=== PATIENT | male | born 1980 | race Caucasian/White ===

== ENCOUNTER 2022-03-17 09:34 | Emergency (ER) | payer MEDICAID ==
[~2022-03-17] VITALS: Ht 170.2 cm; Wt 109.1 kg
[2022-03-17] MEDS ORDERED: TETanus/Pertussis (Acell)/Diphther VAC/PF (Tdap-Adult) 0.5ml syringe IMVAC ONE (10:25)
[2022-03-17] MEDS ORDERED: LIDOcaine 1% w/EPI 1:100,000 30ml vial (MDV) IJ ONE (10:32)
[2022-03-17] MEDS ORDERED: LIDOCAINE 1%/EPI 1:100,000 inj. 10 ML multi-dose vial IJ ONE (10:50)
[2022-03-17] MEDS ORDERED: SULF1TAB49 PO (11:20)
[2022-03-17] MEDS ORDERED: HYDR-3965 PO (11:20)
[2022-03-17 11:38] VITALS: BP 160/97
== END 2022-03-17 11:40 | disposition home or self-care (01) ==
LOC: ER 09:34
DX: L02.212 Cutaneous abscess of back [any part, except buttock and flank] (principal); L03.312 Cellulitis of back [any part except buttock and flank]
CPT/HCPCS: 10060; 90471; 90715; 99283; A6266; A6449

== ENCOUNTER 2022-12-26 13:08 | Emergency (ER) | payer MEDICAID ==
[~2022-12-26] VITALS: Ht 170.2 cm; Wt 104.2 kg
[2022-12-26 13:13] VITALS: TEMP 98.6
[2022-12-26] MEDS ORDERED: proparacaine 0.5% ophthalmic drops 15ml LEFTEYE ONE (15:05)
[2022-12-26] MEDS ORDERED: acetaminophen 325mg tablet PO ONE (15:05)
[2022-12-26] MEDS ORDERED: ibuprofen tablet 400 MG TABLET PO ONE (15:05)
[2022-12-26] MEDS ORDERED: ibuprofen 200mg tablet PO ONE (15:10)
[2022-12-26 15:30] LABS: BASOPHILS % (AUTO) 0.8 % (0-1); EOSINOPHILS % (AUTO) 0.3 % (0-6); HEMOGLOBIN 14.3 g/dl (14.0-17.9); LYMPHOCYTES # (AUTO) 1.4 X10'3 (1.1-4.8); LYMPHOCYTES % (AUTO) 22.6 % (21-51); MEAN CORPUSCULAR HEMOGLOBIN 27.5 PG (27.0-31.0); MEAN CORPUSCULAR HGB CONC 34.1 g/dL (33.0-36.5); MEAN CORPUSCULAR VOLUME 80.8 FL (78-98); MEAN PLATELET VOLUME 8.4 FL (7.4-10.4); MONOCYTES # (AUTO) 0.4 X10'3 (0-0.9); NEUTROPHILS # (AUTO) 4.3 X10'3 (1.8-7.7); NEUTROPHILS % (AUTO) 69.3 % (42-75); PLATELET COUNT 217 X10'3 (140-440); RED BLOOD COUNT 5.19 X10'6 (4.70-6.10); RED CELL DISTRIBUTION WIDTH 15.3 % (11.5-14.5); WHITE BLOOD COUNT 6.1 X10'3 (4.5-11.0)
[2022-12-26 15:45] LABS: ALANINE AMINOTRANSFERASE 69 U/L (12-78); ALBUMIN 3.9 G/DL (3.4-5.0); ALBUMIN/GLOBULIN RATIO 1.1 (1.1-1.5); ALKALINE PHOSPHATASE 86 IU/L (46-116); ANION GAP 9 (8-16); ASPARTATE AMINO TRANSFERASE 43 U/L (10-37); BILIRUBIN,TOTAL 0.3 MG/DL (0.1-1.0); BLOOD UREA NITROGEN 9 MG/DL (7-18); BUN/CREATININE RATIO 9.7 (10.0-20.0); CALCIUM 8.6 MG/DL (8.5-10.1); CHLORIDE 105 MMOL/L (99-107); CREATININE 0.93 MG/DL (0.60-1.10); GLUCOSE 137 MG/DL (70-104); POTASSIUM 3.8 MMOL/L (3.5-5.1); SODIUM 142 MMOL/L (135-145); TOTAL CARBON DIOXIDE 28.4 MMOL/L (24-32); TOTAL PROTEIN 7.6 G/DL (6.4-8.2); eCRCL 95 ML/MIN; eGFR 88 ML/MIN
[2022-12-26] MEDS ORDERED: ERYT1OIN6 EACHEYE (16:03)
[2022-12-26] MEDS ORDERED: AMLO10TA48 PO (16:03)
[2022-12-26] MEDS ORDERED: amLODIPine 5mg tablet PO ONE (16:05)
[2022-12-26] MEDS ORDERED: erythromycin ophthalmic ointment 1gm tube LEFTEYE ONE (16:05)
[2022-12-26 16:35] VITALS: BP 175/109; PULSE 88; RESP 16; O2SAT 96
== END 2022-12-26 16:37 | disposition home or self-care (01) ==
LOC: ER 13:08
DX: H57.12 Ocular pain, left eye (principal); R07.9 Chest pain, unspecified; I10 Essential (primary) hypertension; Z88.5 Allergy status to narcotic agent
CPT/HCPCS: 71045; 80053; 84484; 85025; 93005; 99284; 99285; A6410